=== PATIENT | male | born 1960 | race Caucasian/White ===

== ENCOUNTER 2023-01-27 12:02 | Outpatient (CLI) | payer OTHER, SELFPAY | END 2023-01-27 12:03 | disposition home or self-care (01) | PROVIDERS: PCP Family Medicine; Visit Provider Family Medicine | DX: Z00.00 Encounter for general adult medical examination without abnormal findings (principal); E78.5 Hyperlipidemia, unspecified; Z12.5 Encounter for screening for malignant neoplasm of prostate | CPT/HCPCS: 80048; 80061; 84153; 84460; 85025 ==

== ENCOUNTER 2023-02-04 13:55 | Outpatient (CLI) | payer OTHER, SELFPAY ==
[2023-02-04 15:27] VITALS: BP 136/80; PULSE 85; RESP 18
[2023-02-04] MEDS: PERFLUTREN LIPID MICROSPHERES 2 ML VIAL IV (15:35)
--- NOTE | 2023-02-04 16:43 | W.PM.STED ---
Stress Test Note Date Date of test: 02/04/23 Providers Primary care provider: Tiburcio Cagle Stress test physician: Kev Li Stress Test Note Stress test ordered: Stress Echo Indication for test: Chest pain Stress test medicine: Definity Results discussion: Patient is a very nice gentleman who presents for the above test after discussion the risks benefits and side effects he would like to proceed cardiac stress test medical history form is reviewed. Pretest EKG shows normal sinus rhythm, with a ventricular rate of 56, blood pressure 122/80. Following standard Dominic protocol patient is exercised for a total time of 11 minutes 35 seconds and achieved a metabolic equivalent of 12.1 Mets. Maximum heart rate was 155, heart rate was 113%. Test is terminated because of fulfillment of protocol, subjectively he had no anginal equivalent symptoms. Objectively no significant ST wave changes suggestive of ischemia is noted. Impression: Negative electrographic portion of stress test, conditioning was felt to be good Follow up suggested: Await echo images clinical correlation with these will be needed once cardiology reviews these. Patient left this testing facility back to baseline, there were no complications
== END 2023-02-04 13:56 | disposition home or self-care (01) ==
PROVIDERS: PCP Family Medicine; Visit Provider Family Medicine
DX: R07.9 Chest pain, unspecified (principal)
CPT/HCPCS: 93016; 93325; 93351; Q9957

== ENCOUNTER 2023-02-06 11:01 | Outpatient (CLI) | payer OTHER, SELFPAY ==
--- NOTE | 2023-02-06 12:40 | W.ANESCHARGE ---
Anesthesia Charges Start Date/Time Anesthesia Start Date: 02/06/23 Anesthesia Start Time: 11:53 Stop Date/Time Anesthesia Stop Date: 02/06/23 Anesthesia Stop Time: 12:36
--- NOTE | 2023-02-17 19:14 | W.ANESCHARGE ---
Anesthesia Charges Start Date/Time Anesthesia Start Date: 02/06/23 Anesthesia Start Time: 11:53 Stop Date/Time Anesthesia Stop Date: 02/06/23 Anesthesia Stop Time: 12:36
== END 2023-02-06 11:02 | disposition home or self-care (01) ==
PROVIDERS: PCP Family Medicine; Visit Provider Surgery
DX: Z12.11 Encounter for screening for malignant neoplasm of colon (principal); K63.5 Polyp of colon; K64.8 Other hemorrhoids; Z86.010 Personal history of colon polyps
CPT/HCPCS: 00811; 45385; 88305; J2704

== ENCOUNTER 2023-08-27 08:34 | Outpatient (CLI) | payer OTHER, SELFPAY ==
--- NOTE | 2023-08-27 09:00 | CT_ITS ---
Patient: ADDY HOANG Facility:?[facility] RIS Patient ID:?[id number] Site Patient ID:?[id number]. Site :?[id number] Study:?CT-Chest W/ 75CC ISOVUE 370-08/27/2023 9:29:28 AM Ordering Physician:PARIS Final Report: Indication: CHEST PAIN; LT UPPER DISCOMFORT (6 MONTHS) Technique: CT Chest W/ 75CC ISOVUE 370 Please note that all CT scans at this facility use dose modulation, iterative reconstruction, and/or weight-based dosing when appropriate to reduce radiation dose to as low as reasonably achievable. Comparison: None Findings: Narrowing and spurring are present at the acromioclavicular joint on the left. There is no fracture or suspicious osseous lesion. The ribcage is intact. Postop changes lower cervical spine fusion. The upper abdomen is within normal limits. No adenopathy is present. No visualized thyroid abnormality. Incidental bleb within the right lower lobe medially. Mild dependent atelectasis bilaterally. No pleural effusion or edema. No pneumothorax. No suspicious pulmonary nodule. Impression: No cause for the patient`s symptoms. Please note that all CT scans at this facility use dose modulation, iterative reconstruction, and/or weight-based dosing when appropriate to reduce radiation dose to as low as reasonably achievable. Dictated by Tiburcio Ma MD @ 08/27/2023 11:37:16 AM Signed by:?Tiburcio Ma MD @08/27/2023 11:37:16 AM (Electronic Signature)
[2023-08-27 09:16] LABS: Creatinine* 1.1 mg/dL (0.5-1.5); Estimated Glomerular Filt Rate 77 ml/min
== END 2023-08-27 08:35 | disposition home or self-care (01) ==
LOC: CT 08:35
PROVIDERS: PCP Family Medicine; Visit Provider Family Medicine
DX: R07.9 Chest pain, unspecified (principal)
CPT/HCPCS: 36415; 71260; 82565; Q9967

== ENCOUNTER 2024-03-12 10:52 | Outpatient (CLI) | payer OTHER, SELFPAY ==
--- NOTE | 2024-03-12 12:02 | W.ANESCHARGE ---
Anesthesia Charges Start Date/Time Anesthesia Start Date: 03/12/24 Anesthesia Start Time: 11:30 Stop Date/Time Anesthesia Stop Date: 03/12/24 Anesthesia Stop Time: 12:00
--- NOTE | 2024-03-12 13:39 | W.ANESCHARGE ---
Anesthesia Charges Start Date/Time Anesthesia Start Date: 03/12/24 Anesthesia Start Time: 11:30 Stop Date/Time Anesthesia Stop Date: 03/12/24 Anesthesia Stop Time: 12:00
== END 2024-03-12 10:53 | disposition home or self-care (01) ==
LOC: OP CLINIC 10:53
PROVIDERS: PCP Family Medicine; Visit Provider Surgery
DX: Z86.010 Personal history of colon polyps (principal); D12.8 Benign neoplasm of rectum
CPT/HCPCS: 00811; 45385; 88305; J2704

== ENCOUNTER 2024-04-20 09:01 | Outpatient (CLI) | payer OTHER, SELFPAY | END 2024-04-20 09:02 | disposition home or self-care (01) | PROVIDERS: PCP Family Medicine; Visit Provider Family Medicine | DX: Z00.00 Encounter for general adult medical examination without abnormal findings (principal); E78.2 Mixed hyperlipidemia; R53.83 Other fatigue; Z12.5 Encounter for screening for malignant neoplasm of prostate | CPT/HCPCS: 80053; 80061; 82306; 83735; 84443; 85025; G0103 ==

== ENCOUNTER 2025-02-22 11:09 | Outpatient (CLI) | payer OTHER, SELFPAY | END 2025-02-22 11:10 | disposition home or self-care (01) | PROVIDERS: PCP Family Medicine; Visit Provider Family Medicine | DX: R68.82 Decreased libido (principal); R53.83 Other fatigue; Z13.6 Encounter for screening for cardiovascular disorders | CPT/HCPCS: 80048; 80061; 84403; 84443 ==